=== PATIENT | female | born 1980 | race Caucasian/White ===

== ENCOUNTER 2017-09-09 15:21 | Outpatient (CLI) ==
[2013-12-26 20:26] VITALS: BMI 36.3
== END 2017-09-09 15:22 | disposition home or self-care (01) ==
LOC: AMBL 15:21
PROVIDERS: ATTEND Internal Medicine
DX: S61.217A Laceration without foreign body of left little finger without damage to nail, initial encounter (principal); W25.XXXA Contact with sharp glass, initial encounter; V40.5XXA Car driver injured in collision with pedestrian or animal in traffic accident, initial encounter

== ENCOUNTER 2017-12-02 19:27 | Emergency (ER) ==
[2017-12-02 19:33] VITALS: BP 138/89; TEMP 98.1; BMI 41.0
[2017-12-02] MEDS ORDERED: TORADOL IM STA (19:44)
--- NOTE | 2017-12-02 19:46 | ED.PDOC ---
General ED Provider: Dr. RAMONE LEE Chief Complaint: Tooth Problem Stated Complaint: Patient has broken tooth left side, not able to get to dentist until next week,. Taking OTC pain medication not helping, no swelling of face. Time Seen by Physician: 19:45 Mode of Arrival: Walk-In Information Source: Patient Primary Care Provider: REINIER MARTINO Nursing and Triage Documentation Reviewed and Agree: Yes Reviewed sepsis parameters & appropriate labs ordered?: No System Inflammatory Response Syndrome: Not Applicable Sepsis Protocol: For patient's 13 years and over: Temp is 96.8 and below OR 101 and greater Pulse >90 BPM Resp >20/minute Acutely Altered Mental Status Are patient's symptoms suggestive of a new infection, such as: -Pneumonia -Skin, Soft Tissue -Endocarditis -UTI -Bone, Joint Infection -Implantable Device -Acute Abdominal Infection -Wound Infection -Meningitis -Blood Stream Catheter Infection -Unknown EENT Complaint Exam - Dental/Oral Complaint/Exam Mechanism of Injury: No known trauma Symptoms Are: Still present Timing: Constant Initial Severity: Severe Current Severity: Severe Character: Reports: Aching, Throbbing Aggravating: Reports: Cold, Chewing Alleviating: Reports: None Associated Signs and Symptoms: Denies: Swelling, Discharge, Fever, Foul odor, Foul taste in mouth Tooth Findings: Present: Percussion tenderness, Dental fracture Cervical Lymphadenopathy Present: No Facial Swelling Present: No Bleeding Present: No Septal Hematoma: No Foreign Body Present: No Dysphagia Present: No Drooling Present: No Asymmetrical Tonsillar Swelling Present: No Uvula Midline: No Isatu-tonsillar Fluctuence: No Trismus Present: No Palatal Petechiae Present: No Scarlatinaform Rash Present: No Teeth Picture: 1 - fracture tooth, tender Differential Diagnoses: Fractured Tooth Review of Systems - Review Of Systems Constitutional: Reports: No symptoms Eyes: Reports: No symptoms Ears, Nose, Mouth, Throat: Reports: Mouth pain Respiratory: Reports: No symptoms Cardiac: Reports: No symptoms GI: Reports: No symptoms : Reports: No symptoms Musculoskeletal: Reports: No symptoms Skin: Reports: No symptoms Neurological: Reports: No symptoms Endocrine: Reports: No symptoms Hematologic/Lymphatic: Reports: No symptoms All Other Systems: Reviewed and Negative Past Medical History - Past Medical History Previously Healthy: Yes Endocrine: Reports: None Cardiovascular: Reports: None Respiratory: Reports: None Hematological: Reports: None Gastrointestinal: Reports: None Genitourinary: Reports: None Neuro/Psych: Reports: None Musculoskeletal: Reports: None Cancer: Reports: None Last Menstrual Period: na - Surgical History General Surgical History: Reports: None - Family History Family History: Reports: None - Social History Smoking Status: Never smoker Hx Substance Use: No Alcohol Screening: Occasionally - Immunizations Tetanus Shot up to Date: Yes Physical Exam - Physical Exam Appearance: Well-appearing, No pain distress, Well-nourished Eyes: NIMCO, EOMI, Conjunctiva clear ENT: Ears normal, Nose normal, Oropharynx normal Respiratory: Airway patent, Breath sounds clear, Breath sounds equal, Respirations nonlabored Cardiovascular: RRR, Pulses normal, No rub, No murmur GI/: Soft, Nontender, No masses, Bowel sounds normal, No Organomegaly Musculoskeletal: Normal strength, ROM intact, No edema, No calf tenderness Skin: Warm, Dry, Normal color Neurological: Sensation intact, Motor intact, Reflexes intact, Cranial nerves intact, Alert, Oriented Psychiatric: Affect appropriate, Mood appropriate Critical Care Note - Critical Care Note Total Time (mins): 15 Course - Course Orders, Labs, Meds: Orders Category Date Time Status Ketorolac Tromethamine [Toradol] MEDS 12/02/17 19:44 Stat 60 mg IM ONCE STA Vital Signs: Temp Pulse Resp BP Pulse Ox 12/02/17 19:28 98.1 F 82 18 138/89 99 Departure - Departure Time of Disposition: 19:58 Disposition: HOME SELF-CARE Discharge Problem: Broken tooth Qualifiers: Encounter type: initial encounter Fracture type: closed Qualified Code(s): S02.5XXA - Fracture of tooth (traumatic), initial encounter for closed fracture Instructions: Toothache (ED) Condition: Stable Pt referred to PMD for follow-up: Yes IPMP verified?: Yes Additional Instructions: Patient has script from PMD for Amoxicillin Take medication with food, Keep f/u with dentist Prescriptions: Hydrocodone/Acetaminophen [[place] 5-325 Tablet] 1 tab PO TID PRN #9 tablet PRN Reason: PAIN Allergies/Adverse Reactions: Allergies No Known Allergies Allergy (Unverified 12/26/13 20:26) Home Medications: Ambulatory Orders Albuterol Sulfate [Proair Hfa] 2 puff INH Q4H PRN 12/26/13 Budesonide/Formoterol Fumarate [Symbicort 160-4.5 Mcg Inhaler] 1 puff INH DAILY 12/26/13 Levothyroxine Sodium [Synthroid] 100 mcg PO DAILY 12/26/13 Montelukast Sodium [Singulair] 10 mg PO DAILY 12/26/13 Multivitamin 1 cap PO DAILY 12/26/13 Citalopram Hydrobromide [Celexa] 40 mg PO DAILY 12/02/17 Hydrocodone/Acetaminophen [[place] 5-325 Tablet] 1 tab PO TID PRN #9 tablet Disposition Discussed With: Patient, Family
== END 2017-12-02 20:17 | disposition home or self-care (01) ==
LOC: ED 19:27
DX: S02.5XXA Fracture of tooth (traumatic), initial encounter for closed fracture (principal)
CPT/HCPCS: 96372; 99282